=== PATIENT | male | born 1980 | race Two or more races ===

== ENCOUNTER 2023-06-21 00:25 | Emergency (ER) | payer SELFPAY ==
[~2023-06-21] VITALS: Ht 193 cm; Wt 97.5 kg
[2023-06-21 01:21] VITALS: BP 135/94; TEMP 98.4; O2SAT 100
== END 2023-06-21 02:35 | disposition left against medical advice (07) ==
LOC: ER 00:27
DX: R10.9 Unspecified abdominal pain (principal); Z60.2 Problems related to living alone